=== PATIENT | female | born 1975 | race Caucasian/White ===

== ENCOUNTER 2017-03-26 23:08 | Emergency (ER) | payer OTHER ==
[~2017-03-26] VITALS: Ht 182.9 cm; Wt 96.0 kg
[2017-03-27 00:03] LABS: HEMATOCRIT 37.7 % (37.0-47.0); HEMOGLOBIN 13.1 g/dl (12.0-16.0); IMMATURE GRANULOCYTES 0.3 % (0.0-1.0); MEAN CELL VOLUME 86.9 fL CALC (80.0-100.0); MEAN CORPUSCULAR HGB 30.2 pG CALC (26.0-32.0); MEAN CORPUSCULAR HGB CONC 34.7 g/L CALC (32.0-36.0); NEUT# 6.29 thou/uL (2.00-7.15); RED BLOOD COUNT 4.34 mill/uL (4.20-5.60); RED CELL DISTRI WIDTH 11.7 % (11.5-15.5)
[2017-03-27 00:26] LABS: URINE BILIRUBIN - DIPSTICK NEGATIVE (NEGATIVE); URINE BLOOD DIPSTICK SMALL (NEGATIVE); URINE CLARITY CLEAR; URINE COLOR YELLOW; URINE GLUCOSE - DIPSTICK NEGATIVE (NEGATIVE); URINE KETONE NEGATIVE (NEGATIVE); URINE LEUK ESTERASE NEGATIVE (NEGATIVE); URINE NITRITE - DIPSTICK NEGATIVE (Negative); URINE PH 7.5 (4.5-8.0); URINE PROTEIN - DIPSTICK NEGATIVE (NEG-TRACE); URINE UROBILINOGEN - DIPSTICK 0.2 E.U./dL (0.2)
[2017-03-27 00:36] LABS: ALKALINE PHOSPHATASE 82 u/l (38-126); AMYLASE 66 u/l (30-110); ANION GAP 14 (6-22 (CALC)); BILIRUBIN, TOTAL 0.4 mg/dL (0.0-1.4); BUN 11 mg/dL (7-17); BUN/CREATININE RATIO 13 (12-20 (CALC)); CALCIUM 9.6 mg/dL (8.4-10.2); CARBON DIOXIDE 26 mmol/l (22-30); CHLORIDE 97 mmol/l (95-108); CREATININE 0.8 mg/dL (0.5-1.0); GFR > 60 ML/MIN (>=60 (CALC)); GFR FOR AFR.AMER. > 60 ML/MIN (>=60 (CALC)); GLUCOSE 86 mg/dL (65-105); LIPASE 184 u/l (23-300); POTASSIUM 3.7 mmol/l (3.5-5.1); SGOT/AST 33 u/l (14-36); SGPT/ALT 28 u/l (9-52); SODIUM 134 mmol/l (137-146)
[2017-03-27 00:48] LABS: URINE RBC 0-2 RBC/hpf (0-5); URINE SQUAMOUS EPITHELIAL CELL FEW EPI/hpf (0-FEW); URINE WBC 0-2 WBC/hpf (0-5)
[2017-03-27] MEDS ORDERED: ZOFRAN ODT4 MG PO (02:18)
[2017-03-27] MEDS ORDERED: LORTAB 5/3255 MG PO (02:18)
[2017-03-27 02:35] VITALS: BP 103/58
== END 2017-03-27 02:35 | disposition home or self-care (01) | DRG 446 ==
LOC: ED 23:08
DX: K80.20 Calculus of gallbladder without cholecystitis without obstruction (principal); R11.2 Nausea with vomiting, unspecified; R10.11 Right upper quadrant pain
CPT/HCPCS: Q9967; S0164

== ENCOUNTER 2017-04-03 04:01 | Emergency (ER) | payer OTHER ==
[~2017-04-03] VITALS: Ht 182.9 cm; Wt 100.0 kg
[~2017-04-03 04:01] MED LIST: LORTAB 5/3255 MG PO; ZOFRAN ODT4 MG PO
[2017-04-03 04:37] LABS: HEMATOCRIT 40.2 % (37.0-47.0); HEMOGLOBIN 13.9 g/dl (12.0-16.0); IMMATURE GRANULOCYTES 0.5 % (0.0-1.0); MEAN CELL VOLUME 89.5 fL CALC (80.0-100.0); MEAN CORPUSCULAR HGB CONC 34.6 g/L CALC (32.0-36.0); NEUT# 14.77 thou/uL (2.00-7.15); RED BLOOD COUNT 4.49 mill/uL (4.20-5.60); RED CELL DISTRI WIDTH 12.1 % (11.5-15.5)
[2017-04-03] MEDS ORDERED: PERCOCET 5/325M1 TAB PO (04:39)
[2017-04-03 04:45] LABS: ALBUMIN 4.1 g/dL (3.2-5.0); ALKALINE PHOSPHATASE 180 u/l (38-126); AMYLASE 47 u/l (30-110); ANION GAP 17 (6-22 (CALC)); BILIRUBIN, TOTAL 5.1 mg/dL (0.0-1.4); BUN 10 mg/dL (7-17); BUN/CREATININE RATIO 13 (12-20 (CALC)); CALCIUM 9.3 mg/dL (8.4-10.2); CARBON DIOXIDE 20 mmol/l (22-30); CHLORIDE 103 mmol/l (95-108); CREATININE 0.8 mg/dL (0.5-1.0); GFR > 60 ML/MIN (>=60 (CALC)); GFR FOR AFR.AMER. > 60 ML/MIN (>=60 (CALC)); GLUCOSE 103 mg/dL (65-105); LIPASE 89 u/l (23-300); POTASSIUM 4.1 mmol/l (3.5-5.1); SGOT/AST 489 u/l (14-36); SGPT/ALT 541 u/l (9-52); SODIUM 136 mmol/l (137-146); TOTAL PROTEIN 7.4 g/dL (6.3-8.2)
[2017-04-03 09:14] LABS: URINE BLOOD DIPSTICK MODERATE (NEGATIVE); URINE GLUCOSE - DIPSTICK NEGATIVE (NEGATIVE); URINE KETONE NEGATIVE (NEGATIVE); URINE LEUK ESTERASE NEGATIVE (NEGATIVE); URINE NITRITE - DIPSTICK NEGATIVE (Negative); URINE PROTEIN - DIPSTICK NEGATIVE (NEG-TRACE)
[2017-04-03 09:23] LABS: URINE BILIRUBIN - DIPSTICK MODERATE (NEGATIVE); URINE CLARITY SLIGHT CLOUDY; URINE COLOR DK. YELLOW
[2017-04-03 09:25] LABS: URINE EPITHELIAL CELLS FEW EPI/hpf (0-FEW)
[2017-04-03 09:32] VITALS: BP 113/57
== END 2017-04-03 09:32 | disposition short-term general hospital (02) | DRG 392 ==
LOC: ED 04:01
PROVIDERS: Emergency Medicine
DX: R10.11 Right upper quadrant pain (principal); K80.00 Calculus of gallbladder with acute cholecystitis without obstruction

== ENCOUNTER 2020-09-03 11:54 | Observation (INO) | payer MEDICAID ==
[~2020-09-03] VITALS: Ht 182.9 cm; Wt 106.1 kg
[2020-09-03] VITALS (7 sets, daily range): BP systolic 107–136; BP diastolic 61–76
[~2020-09-03 11:54] MED LIST changes: +PERCOCET 5/325M1 TAB PO
--- NOTE | 2020-09-03 12:00 | NUR ---
PT IMMEDIATELY TO RM 10 FOR BEDSIDE TRIAGE.
[2020-09-03 12:47] LABS: HEMATOCRIT 38.6 % (37.0-47.0); HEMOGLOBIN 12.7 g/dl (12.0-16.0); IMMATURE GRANULOCYTES 0.3 % (0.0-5.0); MEAN CELL VOLUME 87.9 fL CALC (80.0-100.0); MEAN CORPUSCULAR HGB 28.9 pG CALC (26.0-32.0); MEAN CORPUSCULAR HGB CONC 32.9 g/dL CAL (32.0-36.0); NEUT# 6.16 thou/uL (2.00-7.15); RED BLOOD COUNT 4.39 mill/uL (4.20-5.60); RED CELL DISTRI WIDTH 11.8 % (11.5-15.5)
[2020-09-03 12:58] LABS: BUN 10 mg/dL (7-17); BUN/CREATININE RATIO 13 (12-20 (CALC)); CHLORIDE 102 mmol/l (95-108); CREATININE 0.7 mg/dL (0.5-1.0); GFR > 60 ML/MIN (>=60 (CALC)); GFR FOR AFR.AMER. > 60 ML/MIN (>=60 (CALC)); POTASSIUM 4.1 mmol/l (3.5-5.1); SODIUM 135 mmol/l (137-146); TOTAL PROTEIN 6.8 g/dL (6.3-8.2)
--- NOTE | 2020-09-03 13:00 | NUR ---
PT ARRIVED WITH CONCERNS OF LEFT BODY WEAKNESS. SHE STATES THAT LKW WAS YESTERDAY AT 1000. SHE HAS DECREASE OF SENSATION FROM THE LEFT SIDE OF HER FACE DOWN TO THE LEFT LEG AND TOES. [facility] 3. AOX4. WILL CONTINUE TO MONITOR.
[2020-09-03 13:02] LABS: ACT PARTIAL THROMBO TIME 23.9 SECONDS (20.0-32.5); PROTHROMBIN TIME 9.8 SECONDS (9.0-12.5)
[2020-09-03 13:05] LABS: ALKALINE PHOSPHATASE 66 u/l (38-126); ANION GAP 11 (6-22 (CALC)); BILIRUBIN, TOTAL 0.4 mg/dL (0.0-1.4); CARBON DIOXIDE 26 mmol/l (22-30); SGOT/AST 18 u/l (14-36)
--- NOTE | 2020-09-03 14:00 | NUR ---
PT UPDATED ON PLAN OF CARE AND WAIT. SHE VERBALIZED UNDERSTANDING. QUESTIONS WERE ASKED AND ANSWERED. CALL LIGHT WITHIN REACH. FLUIDS FLOWING INTO PATENT IV.
[2020-09-03 14:23] LABS: URINE BILIRUBIN - DIPSTICK NEGATIVE (NEGATIVE); URINE BLOOD DIPSTICK MODERATE (NEGATIVE); URINE COLOR YELLOW; URINE GLUCOSE - DIPSTICK NEGATIVE (NEGATIVE); URINE KETONE NEGATIVE (NEGATIVE); URINE LEUK ESTERASE NEGATIVE (NEGATIVE); URINE NITRITE - DIPSTICK NEGATIVE (Negative); URINE PH 6.5 (4.5-8.0); URINE PROTEIN - DIPSTICK NEGATIVE (NEG-TRACE); URINE UROBILINOGEN - DIPSTICK 0.2 E.U./dL (0.2)
[2020-09-03 14:24] LABS: URINE EPITHELIAL CELLS FEW EPI/hpf (0-FEW)
--- NOTE | 2020-09-03 15:20 | NUR ---
PT NOTIFIED OF PENDING ADMISSION. PT VERBALIZED UNDERSTANDING. DENIES ANY NEEDS AT THIS TIME.
--- NOTE | 2020-09-03 16:08 | NUR ---
GAVE REPORT TO LUISITO IN ICU
--- NOTE | 2020-09-03 16:25 | NUR ---
female pt received to ICU bed 6 in stable condition via stretcher accompanied by Adrien Meraz RN; pt ambulatory to scale then bed with steady gait; admission assessment completed at this time; pt alert and oriented; denies pain; no n/v noted; c/c of left sided numbness and tingling from head to toes starting 09/02/20 approx [id number]; resp even and unlabored; lungs clear; skin color wnl; ra; hr reg; strong pulses; no edema noted; sr/sb on monitor; abd soft with bs present; no bm noted per sql report writer; pt admits to voiding without complication; no urine to inspect at this time; #20 to rac saline locked; no redness or edema noted at site; weakness noted to left extremities; see NIH; weak pedal push and hand grasp noted to left extremities; plan of care/ neuro checks explained; medications explained; call light within reach; will continue to monitor
--- NOTE | 2020-09-03 16:35 | NUR ---
PT TRANSPORTED TO ICU VIA STRETCHER STABLE AND IN NO DISTRESS. CARE ASSUMED TO LUISITO. Admission Note Report Given to: LUISITO Transported by: Wheelchair X Stretcher Transported with: X Nurse Transporter X Patent IV O2 X Building Architect Location: X ICU MS2
--- NOTE | 2020-09-03 18:19 | NUR ---
pt awake in bed eating dinner; no apparent distress noted; pt reports NO worsening of weakness/numbness; no change in neuro status; iv intact; sr on monitor; call light within reach
[2020-09-03 18:22] LABS: ALBUMIN 3.9 g/dL (3.2-5.0); BILIRUBIN, TOTAL 0.5 mg/dL (0.0-1.4); CHOLESTEROL HDL RATIO 3.5 (<4.4 (CALC)); TOTAL PROTEIN 6.7 g/dL (6.3-8.2)
--- NOTE | 2020-09-03 19:00 | NUR ---
PT AWAKE AND ALERT, NEURO CHECK ACCOMP. L SIDE WEAKNESS NOTED. NO DISTRESS NOTED. REQUESTED GOWN TO BE CHANGED, ACCOMP. NO ADDITIONAL NEEDS AT THIS TIME CALL STEELE IN REACH.
--- NOTE | 2020-09-03 20:00 | NUR ---
PT ASSISTED TO BSC. RETURNED TO BED. NEURO ACCOMP. L SIDE WEAKNESS NOTED. CALL STEELE IN REACH.
--- NOTE | 2020-09-03 22:00 | NUR ---
PT LYING ON L SIDE. PT RELATED THE TINGLING IS GONE ON L SIDE AFTER LYING ON L SIDE. L SIDE REMAINS WEAKER THAN L. CALL STEELE IN REACH.
[2020-09-04] VITALS (9 sets, daily range): BP systolic 98–125; BP diastolic 57–78
--- NOTE | 2020-09-04 | NUR ---
PT WITH EYES CLOSED, OPENED APON ENTERING ROOM. PT WITH NO COMPLAINTS AT THIS TIME. NO CHANGE IN NEURO STATUS. CALL STEELE IN PLACE.
--- NOTE | 2020-09-04 02:00 | NUR ---
PT TURNING FROM SIDE TO SIDE. L SIDE REMAINS WEAKER THAN R. DENIES TINGLING TO EXTREMITIES. SENSATION INTACT. CALL STEELE IN REACH.
--- NOTE | 2020-09-04 03:21 | NUR ---
PT UP TO BSC WITH NO ASSIST. RETURNED TO BED. ATTACHED TO MONITORS, CALL STEELE IN REACH.
--- NOTE | 2020-09-04 04:00 | NUR ---
PT WITH EYES CLOSED, RESPONDS TO VERBAL STIMULI. NO CHANGE IN NEURO NOTED. CALL STEELE IN REACH.
--- NOTE | 2020-09-04 06:00 | NUR ---
PT WITH EYES CLOSED. NO NEURO CHANGE NOTED. CALL STEELE IN REACH.
--- NOTE | 2020-09-04 06:45 | NUR ---
RECIEVED REPORT FROM LINDA PUTNAM. ASSUMED PT CARE.
--- NOTE | 2020-09-04 07:30 | NUR ---
PT A&0X4 ABLE TO MAKE NEEDS KNOWN. PT REMAINS SR ON TELEMETRY, HR 68. PT DENIES CP, SOB OR DISTRESS AT THIS TIME. CONTINUES TO REPORT HEAVINESS TO LEFT SIDE, "I FEELS LIFT MY WHOLE LEFT SIDE IS ASLEEP." RESPIRATIONS EVEN/UNLABORED, LS CLEAR THROUGHOUT, SA02@ 97% RA. ABDOMEN SOFT, NON-TENDER, BSX4 ACTIVE. 20G TO RAC INFUSING NS@ 100ML/ HR. NO S/S OF INFITLRATION NOTED AT SITE. CALL LIGHT IN REACH. WILL MONITOR.
--- NOTE | 2020-09-04 08:00 | NUR ---
DR. MENDOZA AT BEDSIDE FOR ASSESSMENT AND TO DISCUSS PLAN OF CARE, NEW ORDERS RECIEVED. PT DOWNGRADED TO MS/TELE. CALL LIGHT IN REACH. WILL MONITOR.
--- NOTE | 2020-09-04 10:00 | NUR ---
PT ASSISTED TO BSC, LG SOFT BM NOTED. PT TOLERATED TRANSFER WELL.
--- NOTE | 2020-09-04 12:11 | NUR ---
CALL, TRANSFERRED TO PORTABLE PHONE.
--- NOTE | 2020-09-04 16:00 | NUR ---
PT RESTING IN BED, OFFERS NO COMPLAINTS AT THIS TIME. WAITING FOR ROOM AVAILABLITY ON MS UNIT.
--- NOTE | 2020-09-04 17:37 | NUR ---
REPORT CALLED TO LINDA SHERWOOD ON MS. PT TO FINISH EATING DINNER THEN WILL BE TRANSPORTED TO MS ROOM 261
--- NOTE | 2020-09-04 17:54 | NUR ---
PT TRANSPORTED TO OFF UNIT VIA .
--- NOTE | 2020-09-04 17:58 | NUR ---
HAND OFF REPORT RECEIVED LOLA SALVADOR,PSYCHOLOGY FELLOW. PT TRANSFERED TO ROOM 261 AT THIS TIME. PT NOTED TO HAVE NOTICEABLE WEAKNESS ON HER LEFT SIDE. PT ABLE TO AMBULATE WITH STANDBY ASSIST. PT NOTED TO BE FAVORING THE LEFT SIDE. PT ORIENTED TO ROOM, CALL LIGHT WITHIN EASY REACH, PHONE AND FREQUENTLY USED ITEM WITHIN EASY REACH. PT IS ALERT AND ORIENTED AND ABLE TO MAKE HER NEEDS KNOWN. FIRST LINE PRODUCTION SUPERVISOR WILL CONTINUE TO MONITOR
--- NOTE | 2020-09-04 22:30 | NUR ---
REPORT RECEIVED FROM RN. PT RESTING IN BED SUPINE; ASSESSMENT AND VITALS COMPLETE ALERT AND ORIENTED. PT DENIES PAIN. PT C/O OF LEFT-SIDED NUMBNESS. RESPIRATIONS EVEN AND UNLABORED ON ROOM AIR AT REST; SOB UPON EXERTION. TELEMENTRY IN PLACE IN SR 77. PT ENCOURAGED TO VERBALIZE CONCERNS. STATES UNDERSTANDING. SAFETY MEASURES IN PLACE. CALL LIGHT WITHIN REACH.
[2020-09-05] VITALS: BP 106/57
--- NOTE | 2020-09-05 00:01 | NUR ---
PT LAYING IN BED WITH EYES CLOSED, APPEARS TO BE SLEEPING, APPEARS COMFORTABLE AND IN NO DISTRESS. RESPIRATIONS REGULAR AND UNLABORED. NO CHANGE WITH CHRISTINA STATUS ITEMS REMAIN WITHIN REACH, CALL STEELE REMAINS WITHIN REACH. BED REMAINS LOCKED AND IN LOW POSITION WITH BEDRAILS UP X2. WILL CONTINUE TO MONITOR.
--- NOTE | 2020-09-05 03:59 | NUR ---
PT RESTING IN BED, NO SIGNS OF DISTRESS NOTED, RESP EVEN AND UNLABORED. PT VOICES NO NEEDS OR COMPLAINTS AT THIS TIME. NEURO ASSESSMENT REMAINS UNCHANGED. CALL LIGHT IN REACH,CONTINUE TO MONITOR.
[2020-09-05 04:00] VITALS: BP 114/64
--- NOTE | 2020-09-05 09:30 | NUR ---
PT RESTING IN BED, ALERT AND ORIETNED. RESPIRATIONS ARE EVEN AND UNLABORED, LUNGS SOUND CLEAR. PEDAL PULSES ARE WEAK. PT DENIES ANY PAIN AT THIS TIME. PT REPORTS FEELING WEAK ON THE LEFT SIDE OF HER BODY, STATING "IT FEELS LIKE, YOU KNOW HOW WHEN YOUR HAND GOES TO SLEEP AND THE FEELING STARTS TO COME BACK, HOW ITS WEAK AND NUMB, THATS HOW I FEEL IN MY LEFT ARM AND LEG." SAFETY PRECAUTIONS IN PLACE. CALL STEELE WITHIN REACH. WILL CONTINUE TO MONITOR.
[2020-09-05 09:32] VITALS: BP 114/60
[2020-09-05 11:00] VITALS: BP 159/82
--- NOTE | 2020-09-05 12:01 | NUR ---
PT RESTING IN BED, ALERT AND ORIENTED. NO S/S OF DISTRESS AT THIS TIME. SAFETY PRECAUTIONS IN PLACE. WILL CONTINUE TO MONITOR.
[2020-09-05 16:00] VITALS: BP 118/73
--- NOTE | 2020-09-05 16:33 | NUR ---
PT RESTING IN BED, ALERT AND ORIENTED. PT REPORTS HAVING A MILD HEADACHE, PT MEDICATED WITH TYLENOL PER EMAR ORDERS. WILL CONTINUE TO MONITOR.
[2020-09-05 19:30] VITALS: BP 114/71
--- NOTE | 2020-09-05 20:01 | NUR ---
REPORT RECEIVED FROM LINDA ROY. PT RESTING IN BED SUPINE; ASSESSMENT AND VITALS COMPLETE ALERT AND ORIENTED. PT STATES SHE HAS A HEADACHE. C/O OF LEFT SIDED NUMBNESS. NEURO ASESSMENT REMAINS UNCHANGED. TELEMENTRY IN PLACE IN SINUS RHYTHUM. PT ENCOURAGED TO VERBALIZE CONCERNS. STATES UNDERSTANDING. SAFETY MEASURES IN PLACE. CALL LIGHT WITHIN REACH.
[2020-09-06] VITALS: BP 132/67
--- NOTE | 2020-09-06 01:06 | NUR ---
PT LAYING IN BED WITH EYES CLOSED, APPEARS TO BE SLEEPING, APPEARS COMFORTABLE AND IN NO DISTRESS. RESPIRATIONS REGULAR AND UNLABORED. NEURO ASSESSMENT REMAINS NORMAL. ITEMS REMAIN WITHIN REACH, CALL STEELE REMAINS WITHIN REACH. BED REMAINS LOCKED AND IN LOW POSITION WITH BEDRAILS UP X2. WILL CONTINUE TO MONITOR.
[2020-09-06 04:00] VITALS: BP 115/68
--- NOTE | 2020-09-06 04:01 | NUR ---
PT RESTING IN BED, NO SIGNS OF DISTRESS NOTED, RESP EVEN AND UNLABORED. PT VOICES NO NEEDS OR COMPLAINTS AT THIS TIME. CALL LIGHT IN REACH,CONTINUE TO MONITOR.
[2020-09-06 07:08] VITALS: BP 115/70
--- NOTE | 2020-09-06 07:08 | NUR ---
PT SITTING IN BED. A&O X3. NO DISTRESS NOTED. PT C/O OF THROBBING MOTT 02/26, PT OFFERED PAIN MEDICATION, BUT REFUSED AT THIS TIME. TRACE EDEMA NOTED TO BLE. PT DENIES ANY OTHER NEEDS AT THIS TIME. ASSESSMENT COMPLETED. DISCUSSED POC. CALL LIGHT IN REACH. CONTINUE TO MONITOR.
--- NOTE | 2020-09-06 10:25 | NUR ---
PT CURRENTLY IN MRI
--- NOTE | 2020-09-06 11:00 | NUR ---
PT EVAL WAS ATTEMPTED THIS AM, HOWEVER, PT WAS IN THE LABORATORY FOR SOME TESTS.
--- NOTE | 2020-09-06 11:28 | NUR ---
PT ARRIVED VIA WC BACK FROM MRI ACCOMPANIED BY CYRUS RIOS. PT C/O OF MOTT, TYLENOL GIVEN. IV FLUIDS REINITIATED. NO OTHER NEEDS AT THIS TIME. ASSESSMENT COMPLETED. DISCUSSED POC. CALL LIGHT IN REACH. CONTINUE TO MONITOR.
[2020-09-06 11:30] VITALS: BP 108/70
[2020-09-06 15:00] VITALS: BP 125/72
--- NOTE | 2020-09-06 17:57 | NUR ---
PT SITTING IN BED EATING DINNER, PT REPORTS MOTT HAS SUBSIDED. NO OTHER NEEDS AT THIS TIME. CALL LIGHT IN REACH. CONTINUE TO MONITOR.
[2020-09-06 19:00] VITALS: BP 112/78
--- NOTE | 2020-09-06 19:00 | NUR ---
RECEIEVED REPORT FROM NURSE ROBERTA PATIENT RESTING IN BED WATCHING TV BREATHING EVEN UNLABORED CALL LIGHT AT REACH.
--- NOTE | 2020-09-06 21:00 | NUR ---
PATIENT ALERT ORIENTED ABLE TO MAKE NEEDS KNONW, WITH ONGOING IV NS @ 100CC/HR INFUSING WELL ON RFA, REMAINS ON TELE SB55, LBM 09/06, BS 108, STATED PAIN RELIEF PS STILL AT 2/10, TRACE ON EDEMA NOTED ON BLE, BREATHING UNLABORED CALL LIGHT AT REACH.
[2020-09-07] VITALS: BP 129/63
--- NOTE | 2020-09-07 00:41 | NUR ---
PATIENT RESTING IN BED WITH EYES CLOSED, BREATHING EVEN UNLABORED, CALL LIGHT AT REACH, TELE IN PLACE SR 64.
[2020-09-07 03:26] VITALS: BP 118/61
--- NOTE | 2020-09-07 03:35 | NUR ---
PATIENT APPEARS TO BE SLEEPING WITH EYES CLOSED, BREATHING EVEN UNLABORED CALL LIGHT AT REACH.
[2020-09-07 07:47] VITALS: BP 106/56
--- NOTE | 2020-09-07 07:47 | NUR ---
PT SITTING IN BED. A&O X3. NO DISTRESS NOTED. PT REPORTS THAT HEADACHE HAS SUBSIDED AND IS FEELING BETTER COMPARED TO YESTERDAY. PT DENIES ANY OTHER PAIN AT THIS TIME. NO OTHER NEEDS AT THIS TIME. ASSESSMENT COMPLETED. CALL LIGHT IN REACH. CONTINUE TO MONITOR.
[2020-09-07] MEDS ORDERED: IMITREX50 M1 PO (09:10)
--- NOTE | 2020-09-07 11:04 | NUR ---
D/C INSTRUCTIONS GIVEN TO PT. IV INTACT UPON REMOVAL.
--- NOTE | 2020-09-07 11:34 | NUR ---
Discharge instructions given. Patient verbalizes understanding of same. Discharged in stable condition via wheelchair to home accompanied by staff. All belongings sent with pt.
== END 2020-09-07 10:47 | disposition home or self-care (01) ==
LOC: ED 11:54 → ED-I 14:15 → ED 14:26 → ICU 14:27 → MS2 09-04 17:45
PROVIDERS: Student in an Organized Health Care Education/Training Program; ADMIT Internal Medicine; ATTEND Internal Medicine
DX: R53.1 Weakness (principal); R20.0 Anesthesia of skin; R51.9 Headache, unspecified; M54.16 Radiculopathy, lumbar region; M50.10 Cervical disc disorder with radiculopathy, unspecified cervical region; G43.909 Migraine, unspecified, not intractable, without status migrainosus
CPT/HCPCS: A9579; G0378; J1650

== ENCOUNTER 2021-05-08 16:48 | Emergency (ER) | payer MEDICAID ==
[~2021-05-08] VITALS: Ht 182.9 cm; Wt 104.0 kg
[~2021-05-08 16:48] MED LIST changes: +IMITREX50 M1 PO
[2021-05-08 17:29] LABS: HEMATOCRIT 39.4 % (37.0-47.0); HEMOGLOBIN 13.7 g/dl (12.0-16.0); IMMATURE GRANULOCYTES 0.2 % (0.0-5.0); MEAN CELL VOLUME 83.7 fL CALC (80.0-100.0); MEAN CORPUSCULAR HGB 29.1 pG CALC (26.0-32.0); MEAN CORPUSCULAR HGB CONC 34.8 g/dL CAL (32.0-36.0); NEUT# 7.8 thou/uL (2.00-7.15); RED BLOOD COUNT 4.71 mill/uL (4.20-5.60); RED CELL DISTRI WIDTH 12.4 % (11.5-15.5)
[2021-05-08 17:46] LABS: ALBUMIN 4.2 g/dL (3.2-5.0); ALKALINE PHOSPHATASE 65 u/l (38-126); ANION GAP 14 (6-22 (CALC)); BILIRUBIN, TOTAL 0.4 mg/dL (0.0-1.4); BUN 10 mg/dL (7-17); BUN/CREATININE RATIO 13 (12-20 (CALC)); CARBON DIOXIDE 22 mmol/l (22-30); CHLORIDE 104 mmol/l (95-108); CREATININE 0.8 mg/dL (0.5-1.0); GFR > 60 ML/MIN (>=60 (CALC)); GFR FOR AFR.AMER. > 60 ML/MIN (>=60 (CALC)); POTASSIUM 4.1 mmol/l (3.5-5.1); SGOT/AST 22 u/l (14-36); SODIUM 136 mmol/l (137-146); TOTAL PROTEIN 7.6 g/dL (6.3-8.2)
[2021-05-08] MEDS ORDERED: VOLTAREN75 MG PO (20:42)
[2021-05-08] MEDS ORDERED: FLEXERIL5 M1 PO (20:42)
[2021-05-08 20:44] LABS: URINE BILIRUBIN - DIPSTICK NEGATIVE (NEGATIVE); URINE BLOOD DIPSTICK TRACE-INTACT (NEGATIVE); URINE COLOR YELLOW; URINE GLUCOSE - DIPSTICK NEGATIVE (NEGATIVE); URINE KETONE TRACE mg/dL (NEGATIVE); URINE LEUK ESTERASE TRACE (NEGATIVE); URINE PROTEIN - DIPSTICK NEGATIVE (NEG-TRACE); URINE SPECIFIC GRAVITY 1.015; URINE UROBILINOGEN - DIPSTICK 0.2 E.U./dL (0.2)
[2021-05-08 20:45] VITALS: BP 120/77
[2021-05-08 20:49] LABS: URINE NITRITE - DIPSTICK NEGATIVE (Negative)
== END 2021-05-08 21:07 | disposition home or self-care (01) ==
LOC: ED 16:48
PROVIDERS: Emergency Medicine
DX: M54.6 Pain in thoracic spine (principal)
CPT/HCPCS: Q9967

== ENCOUNTER 2022-02-13 15:58 | Emergency (ER) | payer MEDICAID ==
[~2022-02-13 15:58] MED LIST changes: +FLEXERIL5 M1 PO; +VOLTAREN75 MG PO
== END 2022-02-13 21:17 | disposition left against medical advice (07) | DRG 951 ==
LOC: ED 15:58 → LWOBS 18:13
DX: Z53.21 Procedure and treatment not carried out due to patient leaving prior to being seen by health care provider (principal)